=== PATIENT | female | born 1960 | race Caucasian/White ===

== ENCOUNTER → 2024-08-14 13:39 | Outpatient (REF) | payer MEDICARE, SELFPAY ==
[2024-08-14 15:17] LABS: Urine Albumin Negative (Neg - Trace); Urine Bilirubin Negative (Negative); Urine Character Clear (Clear); Urine Color Yellow; Urine Glucose Negative (Negative); Urine Ketone Negative (Negative); Urine Leukocyte Negative (Negative); Urine Nitrite Negative (Negative); Urine Occult Blood 1+ (Negative); Urine Urobilinogen Negative (Neg - 1+)
[2024-08-14 15:54] LABS: Albumin 4.5 g/dl (3.5-5.0)
[2024-08-14 15:55] LABS: Carbon Dioxide 26 mmol/L (22-30); Total Protein 6.9 g/dl (6.3-8.2); eGFR > 60.00
[2024-08-14 16:06] LABS: Urine Protein 9 mg/dl
[2024-08-14 16:11] LABS: ALT (SGPT) 12 U/L (0-35); AST (SGOT) 14 U/L (14-36); Alkaline Phosphatase 81 U/L (38-126); Blood Urea Nitrogen 10 mg/dl (7-17); Calcium 10.1 mg/dl (8.4-10.2); Chloride 108 mmol/L (98-107); Glucose 53 mg/dl (70-99); Potassium 4.3 mmol/L (3.5-5.1); Sodium 143 mmol/L (135-145); Total Bilirubin 0.4 mg/dl (0.2-1.3)
[2024-08-14 16:36] LABS: Protein/creatinine Ratio 0.1
[2024-08-14 17:50] LABS: Urine Red Blood Cell 0-2 /HPF (0-2); Urine White Cell 0-2 /HPF (0-5)
== END ==
LOC: RAD 13:39
PROVIDERS: ATTENDING PHYSICIAN Internal Medicine Nephrology; FAMILY PHYSICIAN Nurse Practitioner
DX: N18.2 Chronic kidney disease, stage 2 (mild) (principal); R31.9 Hematuria, unspecified
CPT/HCPCS: 36415; 76770; 80053; 81003; 81015; 82570; 84156

== ENCOUNTER → 2024-10-22 12:59 | Outpatient (REF) | payer MEDICARE, SELFPAY | LOC: RAD 12:59 | PROVIDERS: ATTENDING PHYSICIAN Surgery; FAMILY PHYSICIAN Nurse Practitioner | DX: R31.29 Other microscopic hematuria (principal) | CPT/HCPCS: 74178; Q9967 ==

== ENCOUNTER → 2024-11-12 09:51 | Outpatient (REF) | payer MEDICARE, SELFPAY | LOC: RAD 09:51 | PROVIDERS: ATTENDING PHYSICIAN Internal Medicine Gastroenterology; FAMILY PHYSICIAN Nurse Practitioner | DX: R11.2 Nausea with vomiting, unspecified (principal) | CPT/HCPCS: 74246 ==

== ENCOUNTER 2024-12-24 06:08 | Day surgery (SDC) | payer MEDICARE, SELFPAY ==
[2024-12-24 14:20] VITALS: BP 128/80; BMI 30.7
[2024-12-24 16:25] VITALS: BP 94/71
[2024-12-24 16:30] VITALS: BP 76/52
[2024-12-24 16:31] VITALS: BP 68/59
[2024-12-24 16:32] VITALS: BP 76/50
[2024-12-24 16:45] VITALS: BP 78/66
== END 2024-12-24 17:15 | disposition home or self-care (01) ==
LOC: SDS 06:08
PROVIDERS: ATTENDING PHYSICIAN Internal Medicine Gastroenterology
DX: Z12.11 Encounter for screening for malignant neoplasm of colon (principal); D12.0 Benign neoplasm of cecum; D12.3 Benign neoplasm of transverse colon; K63.5 Polyp of colon; K57.30 Diverticulosis of large intestine without perforation or abscess without bleeding; K31.A0 Gastric intestinal metaplasia, unspecified; K22.89 Other specified disease of esophagus; K44.9 Diaphragmatic hernia without obstruction or gangrene; K31.89 Other diseases of stomach and duodenum; R11.2 Nausea with vomiting, unspecified; Z86.0100 Personal history of colon polyps, unspecified; Z79.01 Long term (current) use of anticoagulants; K62.1 Rectal polyp
CPT/HCPCS: 45385; 45381; 45382; 45380; 43239; 88305; 88342